=== PATIENT | male | born 1990 | race Caucasian/White ===

== ENCOUNTER 2020-03-06 01:51 | Outpatient (CLI) | payer OTHER | END 2020-03-06 01:52 | disposition critical access hospital (66) | LOC: EMS 01:51 → MERGE 01:51 → EMS 01:52 | PROVIDERS: ATTEND Surgery | DX: R45.851 Suicidal ideations (principal) | CPT/HCPCS: A0425; A0429 ==

== ENCOUNTER 2020-03-06 02:07 | Emergency (ER) | payer OTHER ==
--- NOTE | 2020-03-06 02:00 | ED Physician Documentation ---
History of Present Illness - Stated complaint Stated Complaint: SI - History obtained from History obtained from: Patient - Additonal information Additional information: 29-year-old male with a history of depression states that he was in a argument with his trish and started having suicidal thoughts patient reports that he got into his car and was [place] and was having a plan to either drive off or jump off the bridge. Review of Systems Constitutional: reports: Reviewed and negative Eyes: reports: Reviewed and negative Ears: reports: Reviewed and negative Nose: reports: Reviewed and negative Throat: reports: Reviewed and negative Cardiac: reports: Reviewed and negative Respiratory: reports: Reviewed and negative GI: reports: Reviewed and negative : reports: Reviewed and negative Skin: reports: Reviewed and negative Musculoskeletal: reports: Reviewed and negative Neurologic: reports: Reviewed and negative Psychiatric: reports: Depressed, Suicidal Endocrine: reports: Reviewed and negative Immunocompromised: reports: Reviewed and negative PD PAST MEDICAL HISTORY - Present Medications Home Medications: Ambulatory Orders Medication Instructions Recorded Confirmed Cholecalciferol (Vitamin D3) 1 cap PO DAILY 03/06/20 03/06/20 [Vitamin D3] Fexofenadine HCl 180 mg PO DAILY 03/06/20 03/06/20 Fluticasone [Flonase] 2 spray NS DAILY 03/06/20 03/06/20 Metoprolol Succinate 25 mg PO DAILY 03/06/20 03/06/20 Multivitamin [Multivitamins] 1 cap PO DAILY 03/06/20 03/06/20 Omeprazole 40 mg PO DAILY 03/06/20 03/06/20 Ropinirole HCl 3 mg PO DAILY 03/06/20 03/06/20 Trazodone HCl 1 - 2 tab PO QPM 03/06/20 03/06/20 Venlafaxine HCl [Effexor Xr] 300 mg PO DAILY 03/06/20 03/06/20 - Allergies Allergies/Adverse Reactions: Allergies Allergy/AdvReac Type Severity Reaction Status Date / Time No Known Drug Allergies Allergy Verified 03/06/20 02:24 PD ED PE NORMAL - Vitals Vital signs reviewed: Yes - General General: Alert and oriented X 3, No acute distress - HEENT HEENT: PERRL - Neck Neck: Supple, no meningeal sign - Cardiac Cardiac: RRR, No murmur - Respiratory Respiratory: Clear bilaterally - Abdomen Abdomen: Normal bowel sounds, Soft, Non tender, Non distended - Derm Derm: Warm and dry - Extremities Extremities: No deformity - Neuro Neuro: Alert and oriented X 3 - Psych Psych: Other (Depressed) Results - Vitals Vitals: Vital Signs - 24 hr 03/06/20 03/06/20 02:07 05:32 Temperature 37.2 C 36.5 C Heart Rate 83 72 Respiratory 18 20 Rate Blood Pressure 149/90 H 136/75 H O2 Saturation 97 100 Oxygen O2 Source Room air - EKG (time done) 05:03 Rate: Other (no stemi) - Labs Labs: Laboratory Tests 03/06/20 03/06/20 03/06/20 02:20 02:30 02:30 WBC 11.0 H RBC 5.52 Hgb 14.7 Hct 45.5 MCV 82.4 MCH 26.6 L MCHC 32.3 RDW 13.2 Plt Count 326 MPV 10.1 Neut # (Auto) 5.8 Lymph # (Auto) 4.0 H [place] # (Auto) 1.0 Eos # (Auto) 0.2 Baso # (Auto) 0.0 Absolute Nucleated RBC 0.00 Nucleated RBC % 0.0 Sodium 140 Potassium 4.2 Chloride 108 Carbon Dioxide 22 Anion Gap 10.0 BUN 17 Creatinine 0.8 Estimated GFR (MDRD) 113 Glucose 110 H Calcium 9.5 Total Bilirubin 0.5 AST 23 ALT 30 Alkaline Phosphatase 65 Total Protein 7.8 Albumin 4.6 Globulin 3.2 Albumin/Globulin Ratio 1.4 Lipase 35 TSH Urine Color YELLOW Urine Clarity CLEAR Urine pH 6.0 Ur Specific [place] >=1.030 H Urine Protein NEGATIVE Urine Glucose (UA) NEGATIVE Urine Ketones NEGATIVE Urine Occult Blood NEGATIVE Urine Nitrite NEGATIVE Urine Bilirubin NEGATIVE Urine Urobilinogen 0.2 (NORMAL) Ur Leukocyte Esterase NEGATIVE Ur Microscopic Review NOT INDICATED Urine Culture Comments NOT INDICATED Salicylates < 6.0 Urine Opiates Screen NEGATIVE Ur Oxycodone Screen NEGATIVE Urine Methadone Screen NEGATIVE Ur Propoxyphene Screen NEGATIVE Acetaminophen < 10 L Ur Barbiturates Screen NEGATIVE Ur Tricyclics Screen NEGATIVE Ur Phencyclidine Scrn NEGATIVE Ur Amphetamine Screen NEGATIVE U Methamphetamines Scrn NEGATIVE U Benzodiazepines Scrn NEGATIVE Urine Cocaine Screen NEGATIVE U Cannabinoids Screen POSITIVE H Ethyl Alcohol < 5.0 03/06/20 02:30 WBC RBC Hgb Hct MCV MCH MCHC RDW Plt Count MPV Neut # (Auto) Lymph # (Auto) [place] # (Auto) Eos # (Auto) Baso # (Auto) Absolute Nucleated RBC Nucleated RBC % Sodium Potassium Chloride Carbon Dioxide Anion Gap BUN Creatinine Estimated GFR (MDRD) Glucose Calcium Total Bilirubin AST ALT Alkaline Phosphatase Total Protein Albumin Globulin Albumin/Globulin Ratio Lipase TSH 4.09 Urine Color Urine Clarity Urine pH Ur Specific [place] Urine Protein Urine Glucose (UA) Urine Ketones Urine Occult Blood Urine Nitrite Urine Bilirubin Urine Urobilinogen Ur Leukocyte Esterase Ur Microscopic Review Urine Culture Comments Salicylates Urine Opiates Screen Ur Oxycodone Screen Urine Methadone Screen Ur Propoxyphene Screen Acetaminophen Ur Barbiturates Screen Ur Tricyclics Screen Ur Phencyclidine Scrn Ur Amphetamine Screen U Methamphetamines Scrn U Benzodiazepines Scrn Urine Cocaine Screen U Cannabinoids Screen Ethyl Alcohol PD MEDICAL DECISION MAKING - ED course Complexity details: reviewed old records, reviewed results, re-evaluated patient, considered differential, d/w patient, d/w hr shared services consultant, other (patient signed out at shift change to dr. torres.) ED course: 29-year-old male with depression and suicidal thoughts with a plan has been evaluated by psychiatry who recommends inpatient treatment. Patient is currently voluntary at [facility] does have beds however they will need a negative COVID screening which is pending. Departure - Departure Disposition: 65 Psych Hosp/Unit DC/Xfer Clinical Impression: Depression Qualifiers: Depression Type: unspecified Qualified Code(s): F32.9 - Major depressive disorder, single episode, unspecified Condition: Stable
[2020-03-06 02:32] LABS: MUDS CUTOFF CONCENTRATIONS CUTOFF CONC BELOW:
[2020-03-06 02:39] LABS: BASOPHILS % (AUTO) 0.3 %; EOSINOPHILS # (AUTO) 0.2 10^3/uL (0.0-0.7); EOSINOPHILS % (AUTO) 1.7 %; HGB - HEMOGLOBIN 14.7 g/dL (14.0-18.0); MEAN CORPUSCULAR HEMOGLOBIN 26.6 pg (27.0-31.0); MEAN CORPUSCULAR HGB CONC 32.3 g/dL (32.0-36.0); MEAN CORPUSCULAR VOLUME 82.4 fL (80.0-94.0); MEAN PLATELET VOLUME 10.1 fL (7.4-11.4); NEUTROPHILS # (AUTO) 5.8 10^3/uL (1.5-6.6); NEUTROPHILS % (AUTO) 52.1 %; PLT - PLATELET COUNT 326 10^3/uL (130-450); RED BLOOD COUNT 5.52 10^6/uL (4.70-6.10); RED CELL DISTRIBUTION WIDTH 13.2 % (12.0-15.0)
[2020-03-06 02:40] LABS: BILIRUBIN,URINE NEGATIVE (NEGATIVE); GLUCOSE, URINE (UA) NEGATIVE (NEGATIVE); KETONES,URINE (UA) NEGATIVE (NEGATIVE); LEUKOCYTE ESTERASE, URINE NEGATIVE (NEGATIVE); NITRITE,URINE NEGATIVE (NEGATIVE); OCCULT BLOOD,URINE NEGATIVE (NEGATIVE); PROTEIN,URINE NEGATIVE (NEGATIVE); UROBILINOGEN,URINE 0.2 (NORMAL) E.U./dL (NORMAL)
[2020-03-06 02:44] LABS: CLARITY,URINE CLEAR (CLEAR)
[2020-03-06 02:50] LABS: ACETAMINOPHEN < 10 ug/mL (10-30); ALBUMIN 4.6 g/dL (3.2-5.5); ALBUMIN/GLOBULIN RATIO 1.4 (1.0-2.2); ALKALINE PHOSPHATASE 65 IU/L (42-121); ALT ALANINE AMINOTRANSFERASE 30 IU/L (10-60); AST ASPARTATE AMINOTRANSFERASE 23 IU/L (10-42); BILIRUBIN,TOTAL 0.5 mg/dL (0.2-1.0); BUN - BLOOD UREA NITROGEN 17 mg/dL (6-20); CALCIUM 9.5 mg/dL (8.5-10.3); CARBON DIOXIDE - CO2 22 mmol/L (21-32); CHLORIDE 108 mmol/L (101-111); CREATININE 0.8 mg/dL (0.6-1.2); GLUCOSE 110 mg/dL (70-100); LIPASE 35 U/L (22-51); SALICYLATE < 6.0 mg/dL; SODIUM 140 mmol/L (135-145); TOTAL PROTEIN 7.8 g/dL (6.7-8.2)
[2020-03-06 02:54] LABS: AMPHETAMINE SCREEN,URINE NEGATIVE (NEGATIVE); BENZODIAZEPINES SCREEN, URINE NEGATIVE (NEGATIVE); COCAINE SCREEN URINE NEGATIVE (NEGATIVE); METHADONE SCREEN, URINE NEGATIVE (NEGATIVE); METHAMPHETAMINES SCREEN, URINE NEGATIVE (NEGATIVE); OPIATE SCREEN, URINE NEGATIVE (NEGATIVE); OXYCODONE SCREEN, URINE NEGATIVE (NEGATIVE); PROPOXYPHENE SCREEN, URINE NEGATIVE (NEGATIVE); TRICYCLIC ANTIDEPRESSANT,URINE NEGATIVE (NEGATIVE)
--- NOTE | 2020-03-06 05:08 | TELEPSYCH PHYS NOTE ---
Telepsych Note - CHIEF COMPLAINT/HX OF PRESENT ILLNESS Cheif Complaint and History of Present Illness: Name: Sebastien Yepez : 86. 29M Date: 03/06/20 Time: 7:10am Location of patient: [facility] Location of doctor: [facility] Length of consult: 40min This evaluation was conducted via telepsychiatry with the assistance of onsite staff Chief Complaint: SI History of Present Illness: Pt seen via televideo with the help of onsite staff. Pt is a 29 yo male with hx of MDD and Anxiety. Pt reports no previous inpt psychiatric admissions. Pt presented to the ED, BIB EMS/police contacted after the pt called a suicide crisis line indicating that he had thoughts of suicide with plan to jump [place] the [place]. Pt reported to the ED the he felt his life was pointless. He reported in response to questions about a suicide plan that he had no plans now. Pt was seen and evaluated. Pt states he has a several year history of depression and anxiety. Was recently medically discharged from the in November 2019 due to his ongoing and worsening depressive sxs. Pt reports since then he has been under significant stress and notes difficulty coping. States he has been seeing his psychiatrist approximately monthly and therapist weekly. Notes a recent medication change within the past few weeks due to his worsening depression. States a medication was added. Does not recall the name. Feels that the medication change was not helpful, and his depression has worsened further. Pt admits he has experienced thoughts of suicide. He reports that he had an argument with his last night regarding finances. States he said things to her he now regrets. States he started to feel helpless and hopeless with suicidal thoughts. States he talked to his who recommended he call the crisis line. He states that he did not have a plan but gave the plan of jumping off the bridge as the crisis cut and cover line worker asked him what he would do. Vp Director Of Creative Strategy spoke to the pts , Jazmnye @ [phone] who reports the pts mood has been much worse recently. Increased depression and irritability. States he has made comments about not wanting to be around or wanting to in the past, never with a plan in the past. States he was on the line with the boning room worker for about 30 minutes. She feels his medications are not working and he is on a lot of medications. States they have been going through significant stress and states that they have additional stressors ahead in the very near future. Of note, pts states the [place] is apparently a well known bridge that many people have either attempted or completed suicide. On ROS, pt denies AVHs, delusions nor HI. Pt denies SI at this time however called the suicide crisis line noting SI with specific plan. Pt with worsening depressive sxs and feelings of hopelessness and worthlessness. His worsening sxs in the context of mounting stressors with poor coping. Despite recent m edication changes and weekly therapy his depression continues to worsen. Pt presents as a danger to himself and requires acute inpt psychiatric admission for safety, stabilization and treatment. Pt is voluntary for inpt treatment. Collateral: Staff, EMR. Vp Director Of Creative Strategy spoke to the pts , Jazmyne @ [phone] SEE HPI SI/attempts/Self harm: Previous ideation. HI/Violence: Denies HI Trauma history: none reported Sex/human trafficking: not reported Access to guns: Pt reports he gave away his gun a few years prior Legal: denies Psychiatric History/Treatment History: no previous admissions. Current outpt treatment compliance. Drug/Alcohol History: cannabis Medical History: IBS, GERD, Restless leg. Medications & Freq: Effexor. Trazodone, Metoprolol, Fexofenadine, MTV, Omeprazole, Ropinirole, Flonases, Vitamin D. Pt also notes he was started on a new medication by his psychiatrist 2-3 weeks prior which he takes standing 3 days per week. Could not recall the name. Allergies: NKDA Sleep: decreased decreased Family Psych History/History of suicide: mom with depression, dad PTSD from [place]. Social History Relationship status: , 1 child Employment: recently medically discharged from the [employer]. 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 Stressors: homelessness, finances Strengths/supports: Mental Status Exam: Appearance and attire: hospital attire Attitude and behavior: cooperative Affect and mood: depressed/constricted Association and thought processes: linear Thought content: denies delusions. Denies HI. Denies SI at this time however referred by suicide crisis line where pt reported Si with specific plan. Sensorium, memory, and orientation: AxOx3 Intellectual functioning: average Insight and judgment: impaired. - SI/HI/SELF HARM SI/HI/SELF HARM (CURRENT OR HISTORY OF):: SI - PSYCHIATRIC HX/TREATMENT HX Psychiatric: Depression, Anxiety - DRUG/ALCOHOL HX Substance Use and Type: Marijuana - MEDICAL HX Does the pt have a hx of MRSA?: No Cardiovascular: Hypertension Gastrointestinal: GERD PMH Other: Using marijuana gummies but denies abuse of it; Seasonal Allergy - HOME MEDICATIONS Home Meds (as last confirmed): Patient History Medication Instructions Recorded Confirmed Cholecalciferol (Vitamin D3) 1 cap PO DAILY 03/06/20 03/06/20 [Vitamin D3] Fexofenadine HCl 180 mg PO DAILY 03/06/20 03/06/20 Fluticasone [Flonase] 2 spray NS DAILY 03/06/20 03/06/20 Metoprolol Succinate 25 mg PO DAILY 03/06/20 03/06/20 Multivitamin [Multivitamins] 1 cap PO DAILY 03/06/20 03/06/20 Omeprazole 40 mg PO DAILY 03/06/20 03/06/20 Ropinirole HCl 3 mg PO DAILY 03/06/20 03/06/20 Trazodone HCl 1 - 2 tab PO QPM 03/06/20 03/06/20 Venlafaxine HCl [Effexor Xr] 300 mg PO DAILY 03/06/20 03/06/20 - ALLERGIES Allergies (as last confirmed): Allergies Allergy/AdvReac Type Severity Reaction Status Date / Time No Known Drug Allergies Allergy Verified 03/06/20 02:24 - TREATMENT/PHARMACOLOGICAL RECOMMENDATION Treatment - Pharmacological - Therapy Recommendations: Diagnosis: MDD, severe, recurrent without psychotic features. Impression/Risk Assessment: Pt denies SI at this time however called the suicide crisis line noting SI with specific plan. Pt with worsening depressive sxs and feelings of hopelessness and worthlessness. His worsening sxs in the context of mounting stressors with poor coping. Despite recent medication changes and weekly therapy his depression continues to worsen. Also per with new imminent stressors. Pt presents as a danger to himself and requires acute inpt psychiatric admission for safety, stabilization and treatment. Pt is voluntary for inpt treatment. Treatment Recommendations: Pt requires acute inpt psychiatric admission For safety, stabilization and treatment Pt is voluntary for inpt treatment. Please confirm and continue pts home medication regimen. - TIME SPENT & PROVIDER LOCATION Telepsych consultation conducted via videoconferencing: Yes List names and roles of persons who participated in consult: sebastien devries, jose a crane Telepsych Provider Location: [facility] Time Telepsych consult began: 07:05 Time Telepsych consult completed: 07:45
[2020-03-06 14:01] VITALS: BP 132/70
== END 2020-03-06 18:10 ==
LOC: ED 02:07 → MERGE 02:07 → ED 18:10
DX: R45.851 Suicidal ideations (principal); F32.9 Major depressive disorder, single episode, unspecified; Z20.828 Contact with and (suspected) exposure to other viral communicable diseases
CPT/HCPCS: 36415; 80053; 80306; 80307; 80320; 80329; 81001; 81003; 83690; 84443; 85025; 87086; 93005; 99283; 99285